=== PATIENT | female | born 1980 | race African-American/Black ===

== ENCOUNTER 2017-09-27 07:20 | Day surgery (SDC) | payer OTHER ==
[2017-09-27 08:22] VITALS: BMI 35.6
[2017-09-27] MEDS ORDERED: LIDOCAINE HCL/PF 2% SDV 5ML VIAL ONE (09:21)
[2017-09-27] MEDS ORDERED: PROPOFOL 20 ML ONE (09:21)
[2017-09-27 10:38] VITALS: BP 111/79; PULSE 75; TEMP 98
== END 2017-09-27 10:38 | disposition home or self-care (01) ==
LOC: JASU-ENDO 07:20
PROVIDERS: ATTEND Surgery
PROC: 0DJ08ZZ Inspection of Upper Intestinal Tract, Via Natural or Artificial Opening Endoscopic (ICD-10-PCS; principal; 2017-09-27 08:30)
DX: E66.01 Morbid (severe) obesity due to excess calories (principal); Z01.818 Encounter for other preprocedural examination
CPT/HCPCS: 84703

== ENCOUNTER 2017-10-02 08:00 | Inpatient (IN) | payer OTHER ==
[2017-09-28 16:47] VITALS: BMI 35.6
[2017-10-02] MEDS ORDERED: ceFAZolin SODIUM 1 GM VIAL IVPB ONE ×2 (10:04→10:44)
--- NOTE | 2017-10-02 10:05 | HP ---
History & Physical Update - History History: No Change - Physical Physical: No Change - Assessment Assessment: No Change - Plan Plan: No Change (no interval changes since visit with)
[2017-10-02] MEDS ORDERED: MIDAZOLAM HCL 2 MG/2 ML SINGLE DOSE VIAL ONE (10:33)
[2017-10-02] MEDS ORDERED: PROPOFOL 20 ML ONE ×2 (10:38→12:31)
[2017-10-02] MEDS ORDERED: ROCURONIUM BROMIDE 50 MG/5 ML VIAL ONE (10:38)
[2017-10-02] MEDS ORDERED: BUPIVACAINE HCL/PF 0.5% (5MG/ML) 10 ML VIAL IJ ONE ×2 (11:21)
[2017-10-02] MEDS ORDERED: ONDANSETRON 4 MG/2 ML VIAL IVPUSH PRN (12:30)
[2017-10-02] MEDS ORDERED: LACTATED RINGERS SOLUTION 1,000 ML IV SCH (12:30)
[2017-10-02] MEDS ORDERED: NEOSTIGMINE METHYLSULFATE 0.5 MG/ML - 10 ML MDV ONE (12:31)
[2017-10-02] MEDS ORDERED: morphine SULFATE 4 MG/ML VIAL IVPUSH PRN (12:53)
[2017-10-02] MEDS: ACETAMINOPHEN 1000 MG/100 ML VIAL (NON FORMULARY) IVPB SCH ×2 (13:10→18:55)
--- NOTE | 2017-10-02 13:14 | SURG ---
Surgery Laundry Press Operator Note Laundry Press Operator: Dodie Engel PA-C Date of Service: 10/02/17 Diagnosis: morbid obesity Procedure: laparoscopic vertical sleeve gastrectomy. Liver biopsy and EGD I was present for the entirety of the operative procedure. For further detail, please refer to operative report. Visit type - Case Type Case Type: Scheduled Admission - Emergency Emergency Visit: No - New patient This patient is new to me today: Yes Date on this admission: 10/02/17
[2017-10-02] MEDS: METOCLOPRAMIDE HCL INJECTION 10 MG/2 ML VIAL IVPUSH SCH ×2 (13:23→18:55)
--- NOTE | 2017-10-02 13:31 | SPEC ---
DATE OF OPERATION: 10/02/2017 SURGEON: Jam Shaikh MD BUILDER OPERATOR: BETH Schumacher PREOPERATIVE DIAGNOSES: 1. Morbid obesity. 2. Body mass index of 35.6. 3. Obstructive sleep apnea POSTOPERATIVE DIAGNOSES: 1. Morbid obesity. 2. Body mass index of 35.6. 3. Obstructive sleep apnea 4. Hepatomegaly. PROCEDURE: 1. Laparoscopic vertical sleeve gastrectomy. 2. Laparoscopic wedge liver biopsy. 3. Upper endoscopy/esophagogastroduodenoscopy. SPECIMEN: 1. Greater curvature of stomach. 2. Liver biopsy. BOUGIE SIZE: 36-Chinese. ANESTHESIA: GET. DRAINS: None. ESTIMATED BLOOD LOSS: 30 mL REASON FOR PROCEDURE: This is a 36-year-old female who presented to the office for weight loss options. After describing different options, she decided to proceed with a laparoscopic vertical sleeve gastrectomy/possible open, possible liver biopsy , and upper endoscopy. The risks and benefits of the procedure were explained. RISKS AND BENEFITS: After describing the different options for weight loss management, the patient decided to proceed with a laparoscopic, possible open vertical sleeve gastrectomy. The patient was seen by the respective subspecialties and cleared for surgery. The risks and benefits of the procedure were explained. These included bleeding, infection, hernia, MA, DVT, PE, injury to surrounding structures including the liver, colon, bowel, spleen, esophagus, vessel injury, nerve injury, weight regain, gastric leak, staple line leak, sleeve leak, obstruction, vitamin deficiency, hair loss and as some of the possible complications. The patient understood and signed informed consent. DESCRIPTION OF PROCEDURE: The patient was placed supine on the operating room table. The patient underwent general endotracheal intubation. A Leal catheter was inserted. The arms were brought out at 90 degrees and secured. A footboard was placed and the legs were secured laterally with padding. The abdomen was prepped and draped in the usual sterile fashion. A timeout was performed. An incision was made in the left upper quadrant and a Veress needle inserted. Pneumoperitoneum was established. Subsequently, the Veress needle was removed and a 12-mm trocar was placed. The laparoscopic camera was then inserted and inspection of the abdominal cavity was performed. An incision was then made in the supraumbilical area and a 15-mm trocar was placed under direct visualization. A 5-mm trocar was then placed in the right upper quadrant and a 5-mm trocar was placed below the left subcostal margin. A stab wound was made in the subxiphoid area and a Debi clamp inserted and removed to dilate the tract. A Nilesh liver retractor was inserted. The post was secured at the bedside by the nursing staff. The patient was placed in steep reverse Trendelenburg position and the Nilesh liver retractor was used to secure the liver towards the anterior abdominal wall. The pylorus was identified and 6 cm proximal to it, the lesser sac was entered using the LigaSure device. All lateral attachments to the greater curvature of the stomach, including the short gastric vessels, were ligated using the LigaSure device toward the gastrosplenic and gastrophrenic ligaments. Once this was done in its entirety, it was confirmed that all tubes within the nasal or oropharyngeal cavity, including a temperature probe, was removed by Anesthesia. The bougie was then inserted by Anesthesia. Transection of the stomach was then begun staying adjacent to the bougie but away from the angularis. Transection of the stomach was performed near the portion of the stomach where the lesser sac was entered. Two laparoscopic Endo-HANG black noelle were used at this location. Laparoscopic Endo HANG purple staple loads were then used for the remainder of the transection until the greater curvature of the stomach was fully transected. This was done staying close to the bougie. Care was taken to stay away from the angle of His cephalad. The staple line was then inspected. Hemostasis was identified. A leak test was then performed. It was clamped distally to the staple line. Irrigation solution was placed in the left upper quadrant and air was insufflated by Anesthesia into the sleeve. No leaks were identified. No obstruction was identified. This was done through the entirety of the staple line. At this point, the irrigation solution was suctioned and again , hemostasis was noted. A wedge liver biopsy was then performed. The left lobe of the liver was identified and a portion of the edge was grasped. Using electrocautery, a wedge of the liver was excised. This was removed and sent off the field as specimen. Hemostasis at the site of the wedge liver biopsy was attained using electrocautery. The 15-mm supraumbilical trocar was then removed and the greater curvature specimen removed from the site using a sponge stick moraes. The specimen was inspected and a Veress needle inserted. The specimen insufflated adequately and no leak was identified. The staple line was noted to be intact. A Rudi-Jason device was then used to temporarily close the fascia with a 0 Vicryl suture at the site. The 15-mm trocar was then reinserted and the 12-mm trocar in the left upper quadrant was removed. The fascia at this site was then closed using the Rudi-Jason device with a 0 Vicryl suture. Again, hemostasis was noted. The Nilesh liver retractor was then removed under direct visualization. Pneumoperitoneum was desufflated and the fascial sutures were secured. Hemostasis was noted at all incision sites and Marcaine was injected at all incision sites. All incision sites were closed using 4-0 Biosyn. Sterile dressings were applied. The patient tolerated the procedure well and was transferred to the recovery room in stable condition with the Leal catheter intact. The patient was transferred to telemetry for further monitoring. An upper endoscopy was performed. The endoscope was placed inside the patient's mouth. The esophagus, GE junction, gastric pouch, and staple line were inspected. Hemostasis was noted. No leak or obstruction was noted. The stomach was suctioned. The endoscope removed. Patient tolerated the procedure well, transferred to recovery room in stable condition. Romaine [id number] MTDD
[2017-10-02 13:44] LABS: HEMATOCRIT 40.8 % (32.4-45.2); HEMOGLOBIN 13.2 GM/dL (10.7-15.3); MCH 29.7 pg (25.7-33.7); MCHC 32.3 g/dl (32.0-36.0); MEAN CELL VOLUME 91.7 fl (80-96); MEAN PLT VOLUME 6.9 fl (7.5-11.1); PLATELET COUNT 279 K/MM3 (134-434); RBC 4.45 M/mm3 (3.60-5.2); WHITE BLOOD COUNT 11.4 K/mm3 (4.0-10.0)
[2017-10-02 14:16] LABS: ALBUMIN 3.4 g/dl (3.4-5.0); ANION GAP 9 (8-16); BLOOD UREA NITROGEN 14 mg/dL (7-18); CALCIUM 7.6 mg/dL (8.5-10.1); CHLORIDE 108 mmol/L (98-107); CO2 22 mmol/L (21-32); GLUCOSE,RANDOM 135 mg/dL (74-106); POTASSIUM 4.3 mmol/L (3.5-5.1); SODIUM 139 mmol/L (136-145)
[2017-10-02 14:21] LABS: BILIRUBIN,TOTAL 0.5 mg/dL (0.2-1.0); CREATININE 1.1 mg/dL (0.55-1.02); SGOT/AST 41 U/L (15-37); SGPT/ALT 33 U/L (12-78); TOT PROT 7.1 g/dl (6.4-8.2)
[2017-10-02 14:22] LABS: ALK PHOS 55 U/L (45-117)
[2017-10-02] MEDS: ONDANSETRON 4 MG/2 ML VIAL IVPUSH SCH ×3 (16:54→21:45)
[2017-10-02] MEDS ORDERED: ONDANSETRON 4 MG/2 ML VIAL ONE (16:55)
[2017-10-02] MEDS: SODIUM CHLORIDE 1,000 ML IV SCH ×2 (17:15→19:15)
[2017-10-02] MEDS: ENOXAPARIN NA (PORCINE) 40 MG/0.4 ML DISP.SYRIN SQ SCH (21:45)
[2017-10-02] MEDS: FAMOTIDINE 20 MG/50 ML IVPB 20 MG/50 ML MG IVPB SCH (21:45)
[2017-10-03] MEDS ORDERED: PT OWN MED DRAWER 7, Y5N ONE ×2 (00:37→05:59)
[2017-10-03] MEDS: METOCLOPRAMIDE HCL INJECTION 10 MG/2 ML VIAL IVPUSH SCH ×3 (00:42→13:58)
[2017-10-03] MEDS: ONDANSETRON 4 MG/2 ML VIAL IVPUSH SCH ×4 (00:42→13:58)
[2017-10-03] MEDS: ACETAMINOPHEN 1000 MG/100 ML VIAL (NON FORMULARY) IVPB SCH ×2 (00:44→06:00)
[2017-10-03 06:39] LABS: HEMOGLOBIN 12.3 GM/dL (10.7-15.3); MCH 30.9 pg (25.7-33.7); MCHC 34.3 g/dl (32.0-36.0); MEAN PLT VOLUME 7.3 fl (7.5-11.1); PLATELET COUNT 320 K/MM3 (134-434); RDW 13.8 % (11.6-15.6); WHITE BLOOD COUNT 10.8 K/mm3 (4.0-10.0)
[2017-10-03 07:04] LABS: CHLORIDE 108 mmol/L (98-107); POTASSIUM 4.1 mmol/L (3.5-5.1); SODIUM 139 mmol/L (136-145)
[2017-10-03 07:16] LABS: ALBUMIN 3.2 g/dl (3.4-5.0); ALK PHOS 52 U/L (45-117); ANION GAP 7 (8-16); BILIRUBIN,TOTAL 0.9 mg/dL (0.2-1.0); BLOOD UREA NITROGEN 12 mg/dL (7-18); CALCIUM 7.8 mg/dL (8.5-10.1); CO2 24 mmol/L (21-32); CREATININE 0.8 mg/dL (0.55-1.02); GLUCOSE,RANDOM 108 mg/dL (74-106); SGOT/AST 53 U/L (15-37); SGPT/ALT 47 U/L (12-78); TOT PROT 6.7 g/dl (6.4-8.2)
[2017-10-03] MEDS: FAMOTIDINE 20 MG/50 ML IVPB 20 MG/50 ML MG IVPB SCH (09:49)
[2017-10-03] MEDS: ENOXAPARIN NA (PORCINE) 40 MG/0.4 ML DISP.SYRIN SQ SCH (09:49)
[2017-10-03] MEDS: SODIUM CHLORIDE 1,000 ML IV SCH (13:58)
--- NOTE | 2017-10-03 13:59 | PN ---
Progress Note, Physician Chief Complaint: s/p gastric sleeve under general anesthesia History of Present Illness: postop day one. - Current Medication List Current Medications: Active Medications Enoxaparin Sodium (Lovenox -) 40 mg SQ BID [facility] Last Admin: 10/03/17 09:49 Dose: 40 mg Famotidine/Sodium Chloride (Pepcid 20 Mg Premixed Ivpb -) 20 mg in 50 mls @ 100 mls/hr IVPB BID [facility] Last Admin: 10/03/17 09:49 Dose: 100 mls/hr Sodium Chloride (Normal Saline -) 1,000 mls @ 150 mls/hr IV ASDIR [facility] Last Admin: 10/02/17 19:15 Dose: 150 mls/hr Metoclopramide HCl (Reglan Injection -) 10 mg IVPUSH Q6H [facility] Last Admin: 10/03/17 06:00 Dose: 10 mg Morphine Sulfate (Morphine Sulfate) 4 mg IVPUSH Q4H PRN PRN Reason: PAIN LEVEL 1-5 Ondansetron HCl (Zofran Injection) 4 mg IVPUSH Q4H [facility] Last Admin: 10/03/17 09:49 Dose: 4 mg - Objective Vital Signs: Vital Signs Temperature 98.7 F 10/03/17 10:00 Pulse Rate 62 10/03/17 10:00 Respiratory Rate 16 10/03/17 10:00 Blood Pressure 119/79 10/03/17 10:00 O2 Sat by Pulse Oximetry (%) 99 10/03/17 10:00 Constitutional: Yes: Well Nourished Cardiovascular: Yes: WNL Respiratory: Yes: WNL Gastrointestinal: Yes: Tenderness Labs: CBC, BMP 10/03/17 05:35 10/03/17 05:35 Assessment/Plan complaining of gas pain, otherwise no complaints. pain controlled from incision , no nausea or vomiting, dept of anesthesia will sing off care at this time.
[2017-10-03] MEDS ORDERED: oxyCODONE HCL 5 MG TABLET PO PRN ×2 (14:43→15:24)
[2017-10-03] MEDS ORDERED: SODIUM CHLORIDE 1,000 ML IV SCH (14:45)
[2017-10-03 14:57] VITALS: BP 126/78; PULSE 69; TEMP 99.3
--- NOTE | 2017-10-03 17:45 | PN ---
Progress Note (short form) - Note Progress Note: POD 1 No nausea Pain controlled Vital Signs Period Temp Pulse Resp BP Sys/Rucker Pulse Ox Last 24 Hr 98.4 F-99.5 F 62-95 16-20 112-128/63-87 99-99 Abd soft CBC, BMP 10/03/17 05:35 10/03/17 05:35 UGI: no leak/obstruction Clears Ambulate Discharge home
--- NOTE | 2017-10-04 16:46 | PATH ---
Surgical Pathology Report Patient Name: LIZABETH JOE [facility]. Rec. #: [id number] /Age/Gender: 1980 (Age: 36) / F Account: [id number] Location: 4 PEDS/ADOL Taken: 10/02/2017 Received: 10/02/2017 Reported: 10/04/2017 Physicians: Jam Shaikh M.D. Specimen(s) Received A: GREATER CURVATURE STOMACH B: LIVER BIOPSY Clinical History Morbid obesity Final Diagnosis A. STOMACH, GREATER CURVATURE, SLEEVE GASTRECTOMY: MODERATE CHRONIC ACTIVE GASTRITIS. IMMUNOSTAIN FOR H. PYLORI IS POSITIVE (MODERATE NUMBER OF ORGANISMS). B. LIVER, WEDGE BIOPSY: BENIGN LIVER WITH MINIMAL MACROVESICULAR STEATOSIS, AND MILD NONSPECIFIC PORTAL CHRONIC INFLAMMATION. TRICHROME STAIN SHOWS NO SIGNIFICANT INCREASE IN FIBROSIS. IRON STAIN IS NEGATIVE FOR SIDEROSIS. Comment: Recommend correlation with clinical and serologic findings and followup as clinically indicated. Electronically Signed Edy Valdes M.D. Gross Description A. Received in formalin, labeled "greater curvature of stomach," is a 108 gram, 17.0 x 3.8 x 3.0 cm. portion of stomach with a stapled margin of resection. The serosa is craevn-morrell with minimal attached fat. The mucosa is craven-pink with normal folds. No mucosal masses are identified. Molding Utility Worker sections are submitted in one cassette. B. Received in formalin labeled "liver biopsy," is a 4.0 x 1.3 x 0.9 cm portion of soft tissue, consistent with a liver biopsy. The specimen is sectioned and sales representative womens health sections are submitted in one cassette. /10/02/2017 saudi10/02/2017
== END 2017-10-03 18:15 | disposition home or self-care (01) | DRG 621 ==
LOC: EDSTATUS 08:00 → JSAMEDAYSX 08:19 → J4S 17:27
PROVIDERS: ADMIT Surgery; ATTEND Surgery
PROC: 0DB64Z3 Excision of Stomach, Percutaneous Endoscopic Approach, Vertical (ICD-10-PCS; principal; 2017-10-02 10:00)
PROC: 0FB24ZX Excision of Left Lobe Liver, Percutaneous Endoscopic Approach, Diagnostic (ICD-10-PCS; 2017-10-02 10:00)
PROC: 0DJ08ZZ Inspection of Upper Intestinal Tract, Via Natural or Artificial Opening Endoscopic (ICD-10-PCS; 2017-10-02 10:00)
DX: E66.01 Morbid (severe) obesity due to excess calories (principal); Z68.35 Body mass index [BMI] 35.0-35.9, adult; G47.33 Obstructive sleep apnea (adult) (pediatric); R16.0 Hepatomegaly, not elsewhere classified; K29.50 Unspecified chronic gastritis without bleeding; K76.0 Fatty (change of) liver, not elsewhere classified
CPT/HCPCS: 36415; 74241-TC-FY; 80053; 84703; 85027; 86850; 86900; 86901; 88305-TC; 88307-TC; 94760; J0131; J7030